=== PATIENT | female | born 1955 | race Caucasian/White ===

== ENCOUNTER 2022-04-27 06:45 | Day surgery (SDC) | payer MEDICARE, OTHER ==
[2022-04-25 15:58] LABS: BASOPHILS % (AUTO) 0.4 % (0.0-5.0); EOSINOPHILS % (AUTO) 0.4 % (0.0-8.0); HEMATOCRIT 34.7 % (36-48); LYMPHOCYTES % (AUTO) 7.8 % (21.0-51.0); MEAN CORPUSCULAR HEMOGLOBIN 29.4 pg (27.0-33.0); MEAN CORPUSCULAR HGB CONC 33.1 g/dL (32.0-36.0); MEAN CORPUSCULAR VOLUME 88.7 fL (79-99); NEUTROPHILS % (AUTO) 88.7 % (40.0-77.0); PLATELET COUNT (AUTO) 334 K/uL (130-400); RED BLOOD CELL COUNT(AUTO) 3.91 MIL/uL (4.00-5.50); RED CELL DISTRIBUTION WIDTH 12.7 % (11.0-15.5); WHITE BLOOD COUNT (AUTO) 9.5 K/uL (4.8-10.8)
[2022-04-25 16:10] LABS: CREATININE 1.3 mg/dL (0.5-1.5); POTASSIUM 3.3 mmol/L (3.5-5.1)
[2022-04-25 16:13] LABS: INR 0.93 (0.85-1.15)
[2022-04-25 16:14] LABS: PARTIAL THROMBOPLASTIN TIME 26.9 SEC (26.3-35.5)
[2022-04-25 16:22] LABS: APPEARANCE,URINE CLEAR (CLEAR); BILIRUBIN,URINE NEGATIVE (NEGATIVE); COLOR,URINE LIGHT-YELLOW (YELLOW); GLUCOSE, URINE (UA) NEGATIVE (NEGATIVE); KETONES,URINE NEGATIVE (NEGATIVE); LEUKOCYTE ESTERASE ,URINE 250 Leu/uL (NEGATIVE); NITRATE,URINE NEGATIVE (NEGATIVE); OCCULT BLOOD,URINE NEGATIVE (NEGATIVE); PROTEIN,URINE NEGATIVE (NEGATIVE); UROBILINOGEN,URINE 0.2 mg/dL (0.2-1.0)
[2022-04-25 16:27] LABS: B-TYPE NATRIURETIC PEPTIDE 56 pg/mL (0-100)
[2022-04-25 16:37] LABS: MUCUS,URINE RARE LPF (None Seen); SQUAMOUS EPITHELIAL CELL,UR FEW /HPF (0-2)
[2022-04-26 10:37] VITALS: BP 143/66
[2022-04-27] VITALS (10 sets, daily range): BP systolic 125–161; BP diastolic 45–74
[~2022-04-27] VITALS: Ht 167.6 cm; Wt 126.1 kg
[~2022-04-27 06:45] MED LIST: 0.9% NACL 500ML IV.SOLN 500 ML IV SCH; AEC81 PO; ALBU18HF7 IH; AMLO-257 PO; DULO60CA64 PO; FLUT1AER IH; FURO40TA5 PO; MULT-1367 PO; OLME40TA18 PO; OMEG-148 PO; POTA-79 PO; PRAM0.258 PO; SIMV-43 PO; VIBE75TA PO; VITAMIN D PO
[2022-04-27] MEDS ORDERED: 0.9%NACL 1000ML 1,000 ML IV ONE (07:21)
[2022-04-27] MEDS ORDERED: DIAZEPAM 5 MG TABLET ONE (09:39)
[2022-04-27] MEDS ORDERED: DIAZEPAM 5 MG TABLET PO SCH (10:30)
[2022-04-27] MEDS ORDERED: MIDAZOLAM HCL 1 MG/ML 2ML VIAL ONE ×2 (11:53→12:07)
[2022-04-27] MEDS ORDERED: MEPERIDINE-PF 25 MG/ML SYG ONE ×2 (11:53→12:07)
[2022-04-27] MEDS ORDERED: HEPARIN 10,000 UNIT/10ML (1,000 UNIT/ML) VIAL ONE (12:06)
[2022-04-27] MEDS ORDERED: NITROGLYCERIN 50MG VIAL ONE (12:06)
[2022-04-27] MEDS ORDERED: NICARDIPINE 25MG INJ IV ONE (12:06)
[2022-04-27] MEDS ORDERED: SOLU-MEDROL 125MG VIAL ONE (12:06)
[2022-04-27] MEDS ORDERED: SODIUM BICARB 50MEQ 50ML VIAL 50 ML ONE (12:06)
[2022-04-27] MEDS ORDERED: IOHEXOL 350 MG/ML 100ML INFUS..BTL IV ONE (12:07)
[2022-04-27] MEDS ORDERED: LIDOCAINE HCL 400MG/20ML VIAL ONE (12:07)
[2022-04-27] MEDS ORDERED: IOHEXOL-350 50ML VIAL IV ONE (12:07)
[2022-04-27] MEDS ORDERED: 0.9%NACL 1000ML 1,000 ML IV SCH (12:30)
== END 2022-04-27 16:10 | disposition home or self-care (01) ==
LOC: DAH 06:45
PROVIDERS: ATTEND Internal Medicine Cardiovascular Disease
DX: I20.8 Other forms of angina pectoris (principal); I11.0 Hypertensive heart disease with heart failure; I50.32 Chronic diastolic (congestive) heart failure; E66.9 Obesity, unspecified; F41.9 Anxiety disorder, unspecified; G47.33 Obstructive sleep apnea (adult) (pediatric); J44.9 Chronic obstructive pulmonary disease, unspecified; Z79.82 Long term (current) use of aspirin; Z98.84 Bariatric surgery status; Z90.710 Acquired absence of both cervix and uterus; Z98.890 Other specified postprocedural states; Z88.3 Allergy status to other anti-infective agents; Z79.01 Long term (current) use of anticoagulants; Z79.899 Other long term (current) drug therapy
CPT/HCPCS: 80048; 83880; 85025; 85610; 85730; 87088; 81001; 36415; 93005 ×2; 93458; C1769; C1894; J3490 ×4; J7030; J2930; J1644 ×2; J2250 ×2; J2175 ×2; Q9967; A4215; A4222; A4221; A4663; A4216; A4606; Q9965; A4223 ×3; 99156; 99157

== ENCOUNTER 2025-02-17 11:57 | Emergency (ER) | payer OTHER ==
[~2025-02-17] VITALS: Ht 167.6 cm; Wt 110.7 kg
[~2025-02-17 11:57] MED LIST changes: -0.9% NACL 500ML IV.SOLN 500 ML IV SCH; +POTA-364 PO; -POTA-79 PO
--- NOTE | 2025-02-17 12:08 | ERN ---
ED Note History of Present Illness Stated Complaint: CP Chief Complaint: Chest Pain Time Seen by MD: 12:00 Dictation: PATIENT IS A 69-YEAR-OLD FEMALE HERE WITH HER WITH COMPLAINTS OF SUBSTERNAL CHEST PAIN AND A STRANGE FEELING IN HER THROAT FOR THE LAST TWO DAYS. SHE DESCRIBES IT CHRONIC GASTRITIS. NO NAUSEA VOMITING NO SOB. SHE DOES SEE DR. TABOR/POLICY SPECIALIST'S. SHE DENIES ANY HISTORY OF STENTS/BYPASSES NO HEART CATHETERIZATION. SHE DOES TAKEN 81 MG ASPIRIN DAILY AND HAS A HISTORY OF HYPERTENSION. Allergies: Coded Allergies: hydrocodone (Verified Allergy, Unknown, 04/25/22) iodine (Verified Allergy, Unknown, 04/25/22) povidone-iodine (Verified Allergy, Unknown, 04/25/22) Home Meds Reported Medications Aspirin (ASPIRIN 81 MG ECTAB) 81 Mg Ectab, 81 MG PO DAILY, TAB.EC 04/26/22 Albuterol Sulfate (Ventolin Hfa) 18 Gm Hfa.aer.ad, 1 PUFF IH AD PRN for SHORTNESS OF BREATH/WHEEZING, INHALER 04/26/22 Fluticasone/Vilanterol (Breo Ellipta 100-25 Mcg INH) 1 Each Aer.pow.ba, 1 EACH IH DAILY 04/26/22 [Vitamin D] No Conflict Check, 1 TAB PO DAILY 04/26/22 Vibegron (Gemtesa) 75 Mg Tablet, 75 MG PO DAILY, TAB 04/26/22 [place]-3S/Dha/Epa/Fish Oil (Fish Oil 1,000 mg Softgel) 1 Each Capsule, 1 EACH PO DAILY, CAP 04/26/22 Multivitamin (Multivitamin) 1 Each Tablet, 1 EACH PO DAILY, TAB 04/26/22 Duloxetine HCl (Duloxetine HCl) 60 Mg Capsule.dr, 60 MG PO DAILY, CAP 04/26/22 Potassium Chloride (Potassium Chloride) 20 Meq Tablet.er, 20 MEQ PO DAILY, TAB 04/26/22 Simvastatin (Simvastatin) 20 Mg Tablet, 20 MG PO HS, TAB 04/26/22 Olmesartan Medoxomil (Olmesartan Medoxomil) 40 Mg Tablet, 40 MG PO DAILY, TAB 04/26/22 Pramipexole Di-HCl (Pramipexole Dihydrochloride) 0.25 Mg Tablet, 0.25 MG PO HS, TAB 04/26/22 Furosemide (Furosemide) 40 Mg Tablet, 40 MG PO BID, TAB 04/26/22 Amlodipine Besylate (Amlodipine Besylate) 5 Mg Tablet, 5 MG PO DAILY, TAB 04/26/22 Past Medical History History: Not Applicable RN Note Reviewed/Agreed w/PFSH: Yes Review of System Dictation CONSTITUTIONAL: NEGATIVE EXCEPT FOR HPI HEAD/FACE: NEGATIVE EXCEPT FOR HPI EENT: NEGATIVE EXCEPT FOR HPI RESPIRATORY: NEGATIVE EXCEPT FOR HPI CHEST PAIN THAT RADIATES TO NECK GASTROINTESTINAL/ABDOMINAL: NEGATIVE EXCEPT FOR HPI GENITOURINARY: NEGATIVE EXCEPT FOR HPI MUSCULOSKELETAL: NEGATIVE EXCEPT FOR HPI INTEGUMENTARY: NEGATIVE EXCEPT FOR HPI NEUROLOGICAL/PSYCH: NEGATIVE EXCEPT FOR HPI HEMATOLOGIC/LYMPHATIC: NEGATIVE EXCEPT FOR HPI ALL SYSTEMS NEGATIVE, EXCEPT NOTED ABOVE. 13 POINT REVIEW OF SYSTEMS ASSESSED AND ALL NEGATIVE EXCEPT FOR ABOVE. Initial Vital Sign VS Vital Signs Date Time Temp Pulse Resp B/P (MAP) Pulse Ox O2 Delivery O2 Flow Rate FiO2 02/17/25 12:00 98.2 64 16 147/54 100 Room Air 0 02/17/25 12:05 21 Physical Exam Dictation VITAL SIGNS REVIEWED GENERAL APPEARANCE: ALERT, ORIENTED X 3, NO ACUTE DISTRESS, WELL DEVELOPED, NOURISHED. ANXIOUS/OBESE HEAD AND FACE: NON-TRAUMATIC. EYES: PERRL, PINK CONJUNCTIVAS, EYELID NO TRAUMA, ANTERIOR CHAMBER WITH ARCUS SENILIS. EARS: PINNAS INTACT AND NO SIGNS OF TRAUMA OR ERYTHEMA EAR CANALS CLEAR AND NO DISCHARGE TM NO ERYTHEMA NOSE: NO DISCHARGE, NO BLEEDING. OROPHARYNX: MOUTH NORMAL, TONGUE PINK, PHARYNX CLEAR,NO ERYTHEMA, TONSILS NO EXUDATES, NO ABSCESSES NOTED, MUCOUS MEMBRANE MOIST NECK: SUPPLE, NON-TENDER, NO THYROMEGALY, NO MASSES, NO JVD, NO BRUITS BREAST:DEFERRED CHEST:NO TENDERNESS, NO CREPITUS, NO PARADOXICAL MOVEMENT, NO RETRACTIONS LUNGS:CLEAR, WELL-VENTILATED, SYMMETRIC, NO RALES, NO WHEEZING, NO RHONCHI, NO STRIDOR, GOOD BREATH SOUNDS BILATERALLY HEART: REGULAR RATE, REGULAR RHYTHM, NO MURMUR, NO GALLOPS VASCULAR: NO PERIPHERAL EDEMA, ABDOMEN: SOFT, POSITIVE BOWEL SOUNDS, NONDISTENDED, NO GUARDING, NONTENDER, NO REBOUND, NO MASSES NO HEPATOMEGALY, NO SPLENOMEGALY, NO SANTANA'S SIGN, NO HERNIAS. RECTAL: DEFERRED GENITAL: DEFERRED NEUROLOGICAL: NORMAL SPEECH, MOTOR FUNCTION INTACT, SENSORY FUNCTION INTACT MUSCULOSKELETAL: NECK NONTENDER, FULL RANGE OF MOTION, BACK NONTENDER, FULL RANGE OF MOTION, EXTREMITIES: NONTENDER, FULL RANGE OF MOTION SKIN: COLOR PINK, DRY, NO TURGOR, NO RASH, NO LACERATIONS, NO ABRASIONS, NO CONTUSIONS. LYMPHATIC: DEFERRED Results (Laboratory/Radiology) Laboratory/Radiology Laboratory Tests Test 02/17/25 12:16 02/17/25 13:11 White Blood Count 5.4 K/uL (4.8-10.8) Red Blood Count 4.04 MIL/uL (4.00-5.50) Hemoglobin 12.1 g/dL (12.0-16.0) Hematocrit 36.4 % (36-48) Mean Corpuscular Volume 90.1 fL (79-99) Mean Corpuscular Hemoglobin 30.0 pg (27.0-33.0) Mean Corpuscular Hemoglobin Concent 33.2 g/dL (32.0-36.0) Red Cell Distribution Width 12.8 % (11.0-15.5) Platelet Count 292 K/uL (130-400) Mean Platelet Volume 10.5 fL (7.5-10.5) Immature Granulocyte % (Auto) 0.2 % (0-1) Neutrophils (%) (Auto) 56.7 % (40.0-77.0) Lymphocytes (%) (Auto) 32.7 % (21.0-51.0) Monocytes (%) (Auto) 6.6 % (3.0-13.0) Eosinophils (%) (Auto) 3.1 % (0.0-8.0) Basophils (%) (Auto) 0.7 % (0.0-5.0) Neutrophils # (Auto) 3.1 K/uL (1.8-7.7) Lymphocytes # (Auto) 1.8 K/uL (1.0-4.8) Monocytes # (Auto) 0.4 K/uL (0.1-1.0) Eosinophils # (Auto) 0.17 K/uL (0.00-0.70) Basophils # (Auto) 0.04 K/uL (0.00-0.20) Absolute Immature Granulocyte (auto 0.01 K/uL (0-1) Nucleated Red Blood Cells 0.0 % (0.0-0.19) Sodium Level 142 mmol/L (136-145) Potassium Level 4.2 mmol/L (3.5-5.1) Chloride Level 105 mmol/L (101-111) Carbon Dioxide Level 25 mmol/L (21-32) Blood Urea Nitrogen 15 mg/dL (7-18) Creatinine 0.9 mg/dL (0.5-1.0) Glomerular Filtration Rate Calc 69 mL/min (>90) Random Glucose 147 mg/dL (70-105) H Total Calcium 8.8 mg/dL (8.5-10.1) Magnesium Level 2.20 mg/dL (1.80-2.40) Troponin I High Sensitivity 7 ng/L (4-50) 7 ng/L (4-50) 1240/CHEST X-RAY NEGATIVE Labs Reviewed?: Yes EKG Comment: 1205/EKG SINUS RHYTHM/HEART RATE 67/OCCASIONAL PVCS UNIFOCAL. RIGHT BUNDLE BRANCH BLOCK. 1313/2ND EKG SINUS BRADYCARDIA/HEART RATE 52/AXIS NORMAL/RIGHT BUNDLE BRANCH BLOCK ED Course ED Course Orders Procedure Category Date Status Time Cbc With Differential LAB 02/17/25 Complete 12:04 Chest 1vw RAD 02/17/25 Resulted 12:04 12 Lead Ekg Tracing- EKG 02/17/25 Logged Technical 12:04 Nitroglycerin 0.4mg PHA 02/17/25 In Process Sl Tab (Nitrostat) 12:30 Magnesium LAB 02/17/25 Complete 12:04 Troponin I High LAB 02/17/25 Complete Sensitivity 12:04 Aspirin 325mg Tab PHA 02/17/25 Complete (Aspirin 325mg Tab) 12:30 Basic Metabolic Panel LAB 02/17/25 Complete 12:04 Oxygen By Nc/Pulse Ox CPOE 02/17/25 Transmitted 12:04 Lidocaine Hcl 2% PHA 02/17/25 Complete Viscous (Lidocaine Hcl 13:00 Mag/Alum/Simeth 30ml PHA 02/17/25 Complete (Maalox Plus 30ml) 13:00 Dicyclomine Hcl PHA 02/17/25 Complete (Bentyl 10mg/5ml 13:00 Famotidine 20mg Vial PHA 02/17/25 Complete (Pepcid 20mg Vial) 13:00 12 Lead Ekg Tracing- EKG 02/17/25 Logged Technical 13:02 Troponin I High LAB 02/17/25 Complete Sensitivity 13:02 Current Medications Medications (Trade) Dose Ordered Sig/Miryam Route PRN Reason Start Time Stop Time Status Last Admin Dose Admin Al Hydroxide/Mg Hydroxide (MAALox PLUS 30ML) 30 ml ONCE ONCE PO 02/17/25 13:00 02/17/25 13:01 DC 02/17/25 13:08 Aspirin (Aspirin 325mg Tab) 325 mg ONCE ONCE PO 02/17/25 12:30 02/17/25 12:31 DC 02/17/25 12:33 Dicyclomine HCl (Bentyl 10mg/5ml Syrup) 10 mg ONCE ONCE PO 02/17/25 13:00 02/17/25 13:01 DC 02/17/25 13:09 Famotidine (Pepcid 20mg Vial) 20 mg ONCE ONCE IV 02/17/25 13:00 02/17/25 13:01 DC 02/17/25 13:13 Lidocaine HCl (Lidocaine HCl 2% Viscous) 10 ml ONCE ONCE PO 02/17/25 13:00 02/17/25 13:01 DC 02/17/25 13:10 Nitroglycerin (Nitrostat) 0.4 mg Q5M PRN SL CHEST PAIN 02/17/25 12:30 02/17/25 12:51 Vital Signs Date Time Temp Pulse Resp B/P (MAP) Pulse Ox O2 Delivery O2 Flow Rate FiO2 02/17/25 12:05 98.2 64 16 147/54 100 Room Air* 0 21 02/17/25 12:00 98.2 64 16 147/54 100 Room Air 0 1302/PATIENT STATES PAIN ACTUALLY INCREASED AFTER HER 3RD NITROGLYCERIN. SHE CONTINUES TO HAVE EPIGASTRIC TENDERNESS, WE WILL GIVE PEPCID AND A GI COCKTAIL. WE WILL ALSO PURSUE 2ND EKG AND CARDIAC ENZYME.1400/ 1400/PATIENT STATES PAIN COMPLETELY RESOLVED AFTER GI COCKTAIL AND PEPCID. SHE IS AWARE CARDIAC WORKUP IS NEGATIVE ADVISED NO WORK AND WE WILL BE TREATED FOR GASTRITIS AND CLEARED BY YOUR DOCTOR. HEART Score Response (Comments) Value EKG: Repolarization changes 1 Age: > 65yrs (+2) 2 Risk Factors: 1-2 risk factors (+1) 1 Initial Troponin: Normal limit (0) 0 Total 4 Medical Decision Making MDM MDM: DIFFERENTIAL DIAGNOSIS: ACS/AMI/GASTRITIS/GASTROENTERITIS/ELECTROLYTE IMBALANCE/DEHYDRATION/PNEUMONIA/BRONCHITIS/ANXIETY RATIONALE: TESTS CONSIDERED AND ORDERED SECONDARY TO SHARED DECISION MAKING INCLUDE: EKG/LABS/RADIOLOGY PREVIOUS OUTSIDE RECORDS REVIEWED: OLD ER VISITS. RISK OF COMPLICATION AND/OR MORBIDITY OR MORTALITY OF PATIENT MANAGEMENT: NONE MEDICATIONS-PER MEDICATION RECONCILIATION NEED FOR HOSPITALIZATION: PATIENT DOES NOT MEET CRITERIA FOR HOSPITALIZATION. NONE NEED FOR EMERGENCY MAJOR/MINOR SURGERY: NO THERE ARE NO SOCIAL CONCERNS WITH THIS PATIENT. PRESCRIPTION DRUG MANAGEMENT CARAFATE/OMEPRAZOLE PRESCRIPTIONS WILL INCLUDE SYMPTOMATIC CARE PATIENT'S PRIOR EXTERNAL MEDICAL RECORDS FROM OTHER ER VISITS WERE REVIEWED BY ME INDICATED. PRIOR TESTING AND RESULTS FROM PREVIOUS VISITS WERE REVIEWED. PRIOR TESTS WERE TAKEN INTO ACCOUNT WITH MEDICAL DECISION MAKING AND RESOURCE UTILIZATION, INDEPENDENT HISTORIAN/HISTORIANS WERE USED TO OBTAIN COMPLETE MEDICAL HISTORY. I INDEPENDENTLY INTERPRETED THE TEST THAT WERE PERFORMED, RESULTS WERE REVIEWED BY ME AND CONSIDERED FINDINGS ON RADIOLOGY IF ORDERED. MEDICAL MANAGEMENT AND EXAMINATION INTERPRETATION DISCUSSIONS WERE HAD BY ME WITH OTHER QUALIFIED HEALTHCARE PROFESSIONALS INDICATED FOR THE PATIENT'S CARE. DX & DISP Disposition: Discharge Departure Impression: Primary Impression: Acute gastritis Additional Impressions: Atypical chest pain, Diabetes mellitus with hyperglycemia Condition: Stable Scripts Omeprazole (Omeprazole) 40 Mg Capsule.dr 1 CAP PO DAILY for 30 Days, #30 CAP 0 Refills Prov: ROSELIA PENNY 02/17/25 Sucralfate (Carafate) 1 Gram Tablet 1 GM PO ACHS for 10 Days, #40 TAB Prov: ROSELIA PENNY 02/17/25 Additional Instructions: FOLLOW-UP WITH PRIMARY CARE PROVIDER IN 1 TO 2 DAYS. TAKE MEDICATIONS DIRECTED HERE IN THE EMERGENCY ROOM. OKAY TO CONTINUE HOME MEDICATIONS UNLESS OTHERWISE DISCUSSED DURING YOUR VISIT IN THE EMERGENCY ROOM TODAY. RETURN TO YOUR NEAREST EMERGENCY ROOM IF SYMPTOMS WORSEN OR IF THERE IS NO IMPROVEMENT. CALL 911 IF YOU NEED IMMEDIATE ASSISTANCE. TAKE TYLENOL OR MOTRIN [id number] NEEDED AND IF NO CONTRAINDICATIONS ARE PRESENT. INCREASE ORAL HYDRATION. A WOUND CULTURE OR URINE CULTURE WAS ORDERED HERE IN THE EMERGENCY ROOM DEPARTMENT PLEASE FOLLOW-UP WITH PRIMARY CARE PROVIDER AND ADVISE THEM TO GET REPEAT PORTS FROM OUR FACILITY. IF YOU HAD ANY KHALIF WRAP/SPLINTS THAT WERE APPLIED HERE, PLEASE DO NOT REMOVE THEM UNTIL YOU SEE YOUR PRIMARY CARE OR SPECIALTY. FOLLOW A BLAND DIET WITH WATER FOR FLUIDS ONLY. NO COFFEE, NO ICE TEA, NO ALCOHOLIC BEVERAGES, NO SPICY FOODS, NO CITRUS FRUIT JUICE UNTIL CLEARED BY YOUR DOCTOR. NO WORK UNTIL MEDICALLY CLEARED BACK BY YOUR PRIMARY CARE DOCTOR. Referrals: SELF,REFERRAL (PCP) Time of Disposition: 14:00 I have reviewed the case, and I agree with, Diagnosis and Plan ROSELIA PENNY [facility] Feb 17, 2025 12:08
[2025-02-17 12:24] LABS: IMMATURE GRANULOCYTE ABSOLUTE 0.01 K/uL (0-1); NUCLEATED RED BLOOD CELLS 0.0 % (0.0-0.19); PLATELET COUNT (AUTO) 292 K/uL (130-400); RED BLOOD CELL COUNT(AUTO) 4.04 MIL/uL (4.00-5.50); RED CELL DISTRIBUTION WIDTH 12.8 % (11.0-15.5); WHITE BLOOD COUNT (AUTO) 5.4 K/uL (4.8-10.8)
[2025-02-17 12:31] LABS: CREATININE 0.9 mg/dL (0.5-1.0); GLOMERULAR FILTR. RATE CALC 69.0 mL/min (>90); GLUCOSE,RANDOM 147.0 mg/dL (70-105); SODIUM SERUM 142.0 mmol/L (136-145); UREA NITROGEN, BLOOD 15.0 mg/dL (7-18)
[2025-02-17] MEDS: NITROGLYCERIN 0.4 MG SL TAB SL PRN (12:32)
[2025-02-17] MEDS: ASPIRIN 325MG TAB PO ONE (12:33)
[2025-02-17] MEDS: MAG/ALUM/SIMETH 30 ML UDCUP PO ONE (13:08)
[2025-02-17] MEDS: DICYCLOMINE HCL 10 MG/5 ML ML PO ONE (13:09)
[2025-02-17] MEDS: LIDOCAINE HCL 2% VISCOUS 15 ML UDCUP PO ONE (13:10)
[2025-02-17] MEDS: FAMOTIDINE 20MG VIAL IV ONE (13:13)
--- NOTE | 2025-02-17 13:41 | HMCIMG ---
EXAM: CR Chest, 1 View. CLINICAL HISTORY: CHEST PAIN COMPARISON: None provided. FINDINGS: LUNGS: The lungs show no infiltrate or other acute finding. PLEURAL SPACES: No pleural effusion or pneumothorax. MEDIASTINUM: Borderline cardiac enlargement. Otherwise mediastinal contours within normal limits. BONES: No aggressive appearing osseous lesion seen. IMPRESSION: No acute cardiopulmonary pathology is evident. Borderline cardiac enlargement. /[place]
--- NOTE | 2025-02-17 13:59 | EKG ---
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
--- NOTE | 2025-02-17 13:59 | EKG ---
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
[2025-02-17] MEDS ORDERED: OMEP40CA21 PO (14:01)
[2025-02-17] MEDS ORDERED: SUCR1TAB28 PO (14:01)
[2025-02-17 14:11] VITALS: BP 126/56; PULSE 56; RESP 13; TEMP 98.6; O2SAT 100
== END 2025-02-17 14:20 | disposition home or self-care (01) ==
LOC: EDH 11:57
DX: K29.00 Acute gastritis without bleeding (principal); R07.2 Precordial pain; E11.65 Type 2 diabetes mellitus with hyperglycemia; I10 Essential (primary) hypertension; Z88.5 Allergy status to narcotic agent; Z88.8 Allergy status to other drugs, medicaments and biological substances; Z79.82 Long term (current) use of aspirin; Z79.51 Long term (current) use of inhaled steroids; Z79.899 Other long term (current) drug therapy
CPT/HCPCS: 99285; 96374; 71045; 83735; 84484 ×2; 80048; 85025; 36415; 93005 ×2; J1308